=== PATIENT | male | born 1980 | race Caucasian/White ===

== ENCOUNTER 2018-05-12 15:56 | Emergency (ER) | payer MEDICAID ==
[~2018-05-12] VITALS: Ht 172.7 cm; Wt 132.3 kg
[2018-05-12] MEDS ORDERED: ALBU8HFA IH (16:05)
[2018-05-12] MEDS ORDERED: ALBU8.5H8 IH (16:05)
[2018-05-12 19:02] VITALS: BP 143/84
== END 2018-05-12 20:13 | disposition home or self-care (01) ==
LOC: EMS 15:57
DX: M79.604 Pain in right leg (principal); J45.909 Unspecified asthma, uncomplicated; Z79.899 Other long term (current) drug therapy
CPT/HCPCS: 85379; 93971; 99285